=== PATIENT | male | born 1975 ===

== ENCOUNTER 2024-11-22 14:38 | Inpatient (IN) | payer OTHER ==
[2024-11-22 15:38] LABS: BASO % 0.7 % (0-2.0); EOS % 2.7 % (0-4.5); HEMATOCRIT 40.2 % (35.4-49); LYMPH % 24.2 % (8-40); MCH 28.7 pg (25.7-33.7); MCHC 32.2 g/dl (32.0-35.9); MEAN CELL VOLUME 88.9 fl (80-96); MEAN PLT VOLUME 7.5 fl (7.5-11.1); MONO % 7.3 % (3.8-10.2); NEUT % 65.1 % (42.8-82.8); PLATELET COUNT 472 10^3/uL (134-434); RBC 4.52 M/mm3 (4.00-5.60); RDW 13.4 % (11.9-15.9); WHITE BLOOD COUNT 5.7 K/mm3 (4.0-10.0)
[2024-11-22 15:44] LABS: INR 1.15 (0.83-1.09); PROTHROMBIN TIME (PATIENT) 13.2 SEC (9.7-13.0)
[2024-11-22 15:47] LABS: ACTIVATED PTT 34.5 SECONDS (25.2-36.5)
[2024-11-22] MEDS: SODIUM CHLORIDE 1,000 ML IV SCH (16:25)
[2024-11-22 16:35] LABS: POTASSIUM 3.9 mmol/L (3.5-5.1)
[2024-11-22 16:36] LABS: CALCIUM 8.7 mg/dL (8.5-10.1)
[2024-11-22 16:37] LABS: ALBUMIN 3.2 g/dl (3.4-5.0)
[2024-11-22 16:38] LABS: BLOOD UREA NITROGEN 14.4 mg/dL (7-18)
[2024-11-22 16:42] LABS: TOT PROT 6.2 g/dl (6.4-8.2)
[2024-11-22 19:22] LABS: PH,URINE 5.5 (5.0-8.0); URINE APPEARANCE CLEAR; URINE BILIRUBIN NEGATIVE (NEGATIVE); URINE COLOR YELLOW; URINE GLUCOSE (UA) TRACE (NEGATIVE); URINE KETONE 1+ (NEGATIVE); URINE LEUK ESTERASE NEGATIVE (NEGATIVE); URINE NITRITE NEGATIVE (NEGATIVE); URINE PROTEIN NEGATIVE (NEGATIVE)
[2024-11-23] MEDS: levETIRAcetam 500 MG/5 ML INJECTION VIAL IVPB ONE (03:43)
[2024-11-23 07:11] LABS: BASO % 0.8 % (0-2.0); EOS % 2.7 % (0-4.5); HEMATOCRIT 37.3 % (35.4-49); HEMOGLOBIN 12.4 GM/dL (11.7-16.9); LYMPH % 28.3 % (8-40); MCH 29.3 pg (25.7-33.7); MCHC 33.2 g/dl (32.0-35.9); MEAN CELL VOLUME 88.1 fl (80-96); MEAN PLT VOLUME 8.1 fl (7.5-11.1); MONO % 6.4 % (3.8-10.2); NEUT % 61.8 % (42.8-82.8); PLATELET COUNT 453 10^3/uL (134-434); RBC 4.23 M/mm3 (4.00-5.60); RDW 13.4 % (11.9-15.9); WHITE BLOOD COUNT 6.4 K/mm3 (4.0-10.0)
[2024-11-23 07:31] LABS: POTASSIUM 4.1 mmol/L (3.5-5.1)
[2024-11-23 07:37] LABS: MAGNESIUM 1.6 mg/dL (1.8-2.4)
[2024-11-23 07:40] LABS: PHOSPHOROUS 2.9 mg/dL (2.5-4.9)
[2024-11-23] MEDS: MAGNESIUM 1GM/D5W 100ML - 100 ML IVPB IVPB ONE (09:57)
[2024-11-23] MEDS: levETIRAcetam 500 MG/5 ML INJECTION VIAL IVPB SCH (10:01)
[2024-11-23 13:08] VITALS: BMI 23.3
[2024-11-24] MEDS: hydrALAZINE HCL 20 MG/ML VIAL IVPUSH PRN (17:00)
[2024-11-24] MEDS: hydrALAZINE HCL 20 MG/ML VIAL IVPUSH ONE (20:19)
[2024-11-24] MEDS: AMINO ACIDS 4.25%/D5W 1,000 ML IV SCH (22:28)
[2024-11-25] MEDS: hydrALAZINE HCL 20 MG/ML VIAL IVPUSH PRN (02:49)
[2024-11-25 08:33] LABS: POTASSIUM 3.7 mmol/L (3.5-5.1)
[2024-11-25 08:43] LABS: BLOOD UREA NITROGEN 8.6 mg/dL (7-18); MAGNESIUM 1.8 mg/dL (1.8-2.4)
[2024-11-25 08:46] LABS: CREATININE 0.8 mg/dL (0.55-1.3); PHOSPHOROUS 2.8 mg/dL (2.5-4.9)
[2024-11-26 09:10] LABS: BASO % 0.5 % (0-2.0); EOS % 2.3 % (0-4.5); HEMATOCRIT 40.9 % (35.4-49); HEMOGLOBIN 13.7 GM/dL (11.7-16.9); LYMPH % 34.6 % (8-40); MCH 29.7 pg (25.7-33.7); MCHC 33.5 g/dl (32.0-35.9); MEAN CELL VOLUME 88.5 fl (80-96); MEAN PLT VOLUME 8.2 fl (7.5-11.1); MONO % 7.7 % (3.8-10.2); NEUT % 54.9 % (42.8-82.8); PLATELET COUNT 489 10^3/uL (134-434); RBC 4.63 M/mm3 (4.00-5.60); RDW 13.3 % (11.9-15.9); WHITE BLOOD COUNT 4.2 K/mm3 (4.0-10.0)
[2024-11-26 09:18] LABS: POTASSIUM 4.1 mmol/L (3.5-5.1)
[2024-11-26 09:20] LABS: ALBUMIN 3.6 g/dl (3.4-5.0); BLOOD UREA NITROGEN 7.4 mg/dL (7-18); CALCIUM 9.4 mg/dL (8.5-10.1)
[2024-11-26 09:23] LABS: CREATININE 0.9 mg/dL (0.55-1.3)
[2024-11-26 09:25] LABS: BILIRUBIN,TOTAL 0.8 mg/dL (0.2-1); TOT PROT 6.6 g/dl (6.4-8.2)
[2024-11-27 09:22] LABS: BASO % 1.3 % (0-2.0); EOS % 3.1 % (0-4.5); HEMATOCRIT 40.2 % (35.4-49); HEMOGLOBIN 13.3 GM/dL (11.7-16.9); LYMPH % 40.1 % (8-40); MCH 29.2 pg (25.7-33.7); MCHC 33.2 g/dl (32.0-35.9); MEAN CELL VOLUME 87.9 fl (80-96); MEAN PLT VOLUME 8.4 fl (7.5-11.1); MONO % 9.2 % (3.8-10.2); NEUT % 46.3 % (42.8-82.8); PLATELET COUNT 470 10^3/uL (134-434); RBC 4.57 M/mm3 (4.00-5.60); RDW 13.4 % (11.9-15.9); WHITE BLOOD COUNT 3.8 K/mm3 (4.0-10.0)
[2024-11-27 09:45] LABS: POTASSIUM 3.8 mmol/L (3.5-5.1)
[2024-11-27 09:49] VITALS: RESP 18
[2024-11-27 10:01] LABS: ALBUMIN 3.4 g/dl (3.4-5.0); BLOOD UREA NITROGEN 11.7 mg/dL (7-18); CALCIUM 9.3 mg/dL (8.5-10.1)
[2024-11-27 10:05] LABS: CREATININE 0.9 mg/dL (0.55-1.3)
[2024-11-27 10:06] LABS: BILIRUBIN,TOTAL 0.7 mg/dL (0.2-1); TOT PROT 6.5 g/dl (6.4-8.2)
[2024-11-27 19:37] VITALS: PULSE 80; TEMP 98.1
[2024-11-27 21:18] VITALS: BP 140/105
== END 2024-11-28 01:30 | DRG 58 ==
LOC: JER 14:38 → JERBED 18:10 → OBSVTOIN 18:39 → J4W 20:36
PROVIDERS: ADMIT Family Medicine; ATTEND Family Medicine
DX: T85.02XA Displacement of ventricular intracranial (communicating) shunt, initial encounter (principal); G91.0 Communicating hydrocephalus; G93.89 Other specified disorders of brain; R13.10 Dysphagia, unspecified; E78.5 Hyperlipidemia, unspecified; G40.909 Epilepsy, unspecified, not intractable, without status epilepticus; I10 Essential (primary) hypertension; Z74.01 Bed confinement status; Z98.2 Presence of cerebrospinal fluid drainage device; Y83.9 Surgical procedure, unspecified as the cause of abnormal reaction of the patient, or of later complication, without mention of misadventure at the time of the procedure
CPT/HCPCS: 36415; 70260-TC-FY; 70450-TC; 70551-TC; 71045-TC-FY; 71046-TC-FY; 74018-TC-FY; 74021-TC-FY; 74220-TC-FY; 74230-TC-FY; 80048; 80053; 80061; 81003; 82550; 82553; 82962; 83036; 83735; 84100; 84484; 85025; 85610; 85730; 86850; 86900; 86901; 87086; 92611-GN; 93005; 93010; 99285-25; G0378